=== PATIENT | male | born 2000 | race Caucasian/White ===

== ENCOUNTER 2020-03-31 15:14 | Emergency (ER) | payer OTHER, SELFPAY ==
[2020-03-31 15:39] VITALS: BP 92/75; PULSE 62; RESP 16; TEMP 37.3; O2SAT 100
--- NOTE | 2020-03-31 16:48 | ED.WOUNDLAC ---
HPI - Wound/Laceration General Chief Complaint: Wound/Laceration Stated Complaint: leg laceration Time Seen by Provider: 03/31/20 16:23 Source: patient Mode of arrival: ambulatory Limitations: no limitations History of Present Illness HPI narrative: This patient is a 19 year old male who presents for evaluation of left leg laceration. Patient states that he was working at [employer] when a large box accidently fall cutting his leg. He states he is able to ambulate without any difficulty. He has minimal pain. His tetanus is up to date as well. Related Data Home Medications Medication Instructions Recorded Confirmed No Home Medications 03/31/20 03/31/20 Allergies Allergy/AdvReac Type Severity Reaction Status Date / Time No Known Allergies Allergy Verified 03/31/20 15:45 Review of Systems Review of Systems: All systems reviewed & are unremarkable except as noted in HPI and below PMFSH Past Medical History Medical History (Updated 03/31/20 @ 16:54 by Dee Wu MD) Patient denies medical problems Surgical History Surgical History (Updated 03/31/20 @ 16:49 by Dee Wu MD) No significant past surgical history Social History Social History (Updated 03/31/20 @ 16:49 by Dee Wu MD) Smoking status: Never smoker Gender identity (if verbalized by the patient): Male Exam Const: General: no acute distress and alert Orientation/consciousness: patient oriented x3 HENMT: Head: normocephalic and atraumatic Mouth: Yes Normal oral and palatal mucosa present Throat: posterior oropharynx normal Resp: Effort & Inspection: normal respiratory effort Neuro: General: patient oriented x3 and moves all extremities Extrem: General: no pedal edema Other: FROM there is 2 cm laceration about 2 inches above patella Psych: Mental Status: mental status grossly normal Course Vital Signs Vital signs: Vital Signs Temperature 99.1 F 03/31/20 15:39 Pulse Rate 62 03/31/20 15:39 Respiratory Rate 16 03/31/20 15:39 Blood Pressure 92/75 L 03/31/20 15:39 Pulse Oximetry 100 03/31/20 15:39 Temperature 99.1 F 03/31/20 15:39 Pulse Rate 62 03/31/20 15:39 Respiratory Rate 16 03/31/20 15:39 Blood Pressure 92/75 L 03/31/20 15:39 Pulse Oximetry 100 03/31/20 15:39 Procedures Laceration Laceration 1: Date: 03/31/20 Time: 16:52 Site: lower extremity Side (If applicable): left Size (cm): 2 Description: linear Depth: simple, single layer Local Anesthetic: lidocaine 1% Amount of anesthesia used (mL): 3 ====== Skin Level ====== Skin layer closed with: prolene Size (cm): 4-0 Number of sutures: 3 Technique: horizontal mattress ====== Subcutaneous Layer ====== ====== Muscle Layer ====== ====== Tendon Layer ====== Discharge Plan Discharge Clinical Impression: Laceration of left lower extremity Qualifiers: Encounter type: initial encounter Qualified Code(s): S81.812A - Laceration without foreign body, left lower leg, initial encounter Patient Disposition: Home, Self-Care Condition: Stable Instructions: Antibiotic Form, Care For Your Stitches (ED), Laceration (ED) Additional Instructions: Today you were seen for a laceration . you may keep wound clean with soap and water. Watch for signs of infection. You will need to have stitches removed in 10 days. Prescriptions: No Action No Home Medications RF: 0 Follow-up/Referrals: Dev Nolan MD [Physician] - [facility]IC[facility] [Primary Care Provider] -
== END 2020-03-31 17:20 | disposition home or self-care (01) ==
PROVIDERS: Emergency Provider General Practice
DX: S81.812A Laceration without foreign body, left lower leg, initial encounter (principal); W20.8XXA Other cause of strike by thrown, projected or falling object, initial encounter
CPT/HCPCS: 12001; 99282